=== PATIENT | male | born 1990 | race Caucasian/White ===

== ENCOUNTER 2016-11-24 14:36 | Emergency (ER) | payer OTHER, SELFPAY ==
[~2016-11-24] VITALS: Ht 170.2 cm; Wt 66.2 kg
[2016-11-24 14:37] VITALS: BP 127/74
[2016-11-24] MEDS ORDERED: PROP10TA56 PO (14:49)
[2016-11-24] MEDS ORDERED: DEPA1TAB3 PO (14:49)
[2016-11-24] MEDS ORDERED: Haldol (14:49)
[2016-11-24] MEDS ORDERED: ASPI325T PO (14:49)
[2016-11-24] MEDS ORDERED: Laxative (14:49)
[2016-11-24] MEDS ORDERED: SERO1TAB3 PO (14:49)
== END 2016-11-24 17:46 | disposition home or self-care (01) ==
LOC: M ED 16:56
DX: Z43.1 Encounter for attention to gastrostomy (principal); F99 Mental disorder, not otherwise specified; F17.210 Nicotine dependence, cigarettes, uncomplicated; Z87.828 Personal history of other (healed) physical injury and trauma; Z79.899 Other long term (current) drug therapy

== ENCOUNTER 2016-11-29 08:00 | Outpatient (RCR) | payer OTHER ==
[~2016-11-29 08:00] MED LIST: ASPI325T PO; DEPA1TAB3 PO; Haldol; Laxative; PROP10TA56 PO; SERO1TAB3 PO
== END 2016-12-15 ==
LOC: M ST 08:00
DX: Z51.89 Encounter for other specified aftercare (principal); R41.841 Cognitive communication deficit

== ENCOUNTER 2017-09-03 10:30 | Emergency (ER) | payer OTHER ==
[2017-09-03] MEDS: methylPREDNISolone INJ 125 MG/2 ML VIAL (J2930) IM (10:57)
== END 2017-09-03 11:16 | disposition home or self-care (01) ==
LOC: M ED 10:30
DX: L23.9 Allergic contact dermatitis, unspecified cause (principal); F17.200 Nicotine dependence, unspecified, uncomplicated; Z91.030 Bee allergy status
CPT/HCPCS: J2930

== ENCOUNTER → 2017-12-31 | Outpatient (CLI) | payer MEDICAID, SELFPAY | LOC: M OUTALCOH 12:33 | DX: Z13.9 Encounter for screening, unspecified (principal); F12.20 Cannabis dependence, uncomplicated ==

== ENCOUNTER 2018-01-08 16:29 | Outpatient (RCR) | payer MEDICAID, SELFPAY | END 2018-01-15 | LOC: M OUTALCOH 16:29 | DX: F12.20 Cannabis dependence, uncomplicated (principal) ==

== ENCOUNTER 2018-12-10 01:39 | Emergency (ER) | payer MEDICAID, OTHER ==
[~2018-12-10] VITALS: Ht 170.2 cm; Wt 65.0 kg
[~2018-12-10 01:39] MED LIST changes: +ASPI-1 PO; -ASPI325T PO; +HYDR1CRE93 TOP
[2018-12-10 02:13] LABS: BASO # 0.1 10^3/uL (0.0-0.2); EOS # 0.2 10^3/uL (0.0-0.50); EOS % 2.5 % (0.0-3.0); HEMATOCRIT 42.1 % (42.0-52.0); HEMOGLOBIN 15.3 g/dl (13.5-17.5); LYMPH # 3.8 10^3/uL (1.5-6.5); LYMPH % 40.1 % (24.0-44.0); MEAN CORPUSCULAR HEMOGLOBIN 30.4 pg (27.0-33.0); MEAN CORPUSCULAR HGB CONC 36.3 g/dl (32.0-36.5); MEAN CORPUSCULAR VOLUME 83.7 fl (80.0-96.0); MONO # 0.8 10^3/uL (0.0-0.8); MONO % 8.1 % (0.0-5.0); NEUTROPHILS # 4.5 10^3/uL (1.8-7.7); PLATELET COUNT, AUTOMATED 318 10^3/uL (150-450); RED BLOOD COUNT 5.03 10^6/uL (4.30-6.10); WHITE BLOOD COUNT 9.5 10^3/uL (4.0-10.0)
[2018-12-10 02:35] LABS: BLOOD UREA NITROGEN 10 MG/DL (7-18); CALCIUM LEVEL 8.9 MG/DL (8.5-10.1); CARBON DIOXIDE LEVEL 26 MEQ/L (21-32); CHLORIDE LEVEL 106 MEQ/L (98-107); CK-MB VALUE MASS 2.1 NG/ML (<3.6); CPK CREATINE PHOSPHOKINASE 342 U/L (39-308); CREATININE FOR GFR 0.82 MG/DL (0.70-1.30); GLOMERULAR FILTRATION RATE > 60.0 (>60); GLUCOSE, FASTING 82 MG/DL (70-100); MB/CK RELATIVE INDEX 0.61 (< OR =4); POTASSIUM SERUM 3.8 MEQ/L (3.5-5.1); SODIUM LEVEL 139 MEQ/L (136-145); TROPONIN I < 0.02 NG/ML (< 0.10)
[2018-12-10] MEDS ORDERED: NS 1,000 ML IV ONE (03:15)
[2018-12-10] MEDS ORDERED: KETOROLAC 30 MG/ML VIAL (J1885) IV ONE (03:15)
[2018-12-10] MEDS ORDERED: METAL LOCK LOOP XX ONE (03:48)
[2018-12-10 03:53] LABS: CK-MB VALUE MASS 2.3 NG/ML (<3.6); CPK CREATINE PHOSPHOKINASE 330 U/L (39-308); TROPONIN I < 0.02 NG/ML (< 0.10)
[2018-12-10 04:30] VITALS: BP 106/62
--- NOTE | 2018-12-10 08:35 | REP ---
Clinical: Acute chest pain . Comparison: 10/07/2015 . Technique: PA and lateral. Findings: The mediastinum and cardiac silhouette are normal. The lung iqbal are clear and without acute consolidation, effusion, or pneumothorax. The skeletal structures are intact and normal. Impression: 1. No acute cardiopulmonary process. Electronically Signed by Dayton Donis MD 12/10/2018 06:14 A
--- NOTE | 2018-12-10 15:38 | ECGEPIP ---
[facility] - ED Test Date: 2018-12-10 Pat Name: BOBO PERKINS Department: Room: - Gender: Male [employer] Analyst: danielle : 1990 Requested By: KIMBERLEE Guevara Order Number: [id number] Reading MD: Linh Ng Measurements Intervals [place] Rate: 52 P: 24 MT: 122 QRS: 62 QRSD: 97 T: 33 QT: 397 QTc: 372 Interpretive Statements SINUS BRADYCARDIA INCOMPLETE RIGHT BUNDLE BRANCH BLOCK similar to prior EKG 10/07/15 Electronically Signed on 12-10-2018 15:37:41 EDT by Linh Ng
== END 2018-12-10 04:41 | disposition home or self-care (01) ==
LOC: M ED 01:39
DX: R07.89 Other chest pain (principal); I45.19 Other right bundle-branch block; Z91.030 Bee allergy status; Z87.891 Personal history of nicotine dependence; F12.20 Cannabis dependence, uncomplicated
CPT/HCPCS: 71046; 80048; 82550; 82553; 85025; 85379; 93005; 96361; 96374; 99284; J1885

== ENCOUNTER → 2022-04-02 | Outpatient (REF) | payer OTHER ==
[~2022-04-02] MED LIST changes: -HYDR1CRE93 TOP; +HYDR28CR33 TOP
== END ==
LOC: M LAB REF 10:29
PROVIDERS: ATTEND Physician Assistant Medical
DX: L03.114 Cellulitis of left upper limb (principal)

== ENCOUNTER → 2022-04-06 | Outpatient (CLI) | payer OTHER | LOC: M SOG 13:32 | PROVIDERS: ATTEND Student in an Organized Health Care Education/Training Program | DX: M79.642 Pain in left hand (principal) ==

== ENCOUNTER 2022-09-13 22:59 | Inpatient (IN) | payer BC, MEDICAID, OTHER ==
[~2022-09-13] VITALS: Ht 167.6 cm; Wt 63.1 kg
[2022-09-13 23:47] LABS: HEMATOCRIT 43.3 % (42.0-52.0); MEAN CORPUSCULAR HEMOGLOBIN 30.2 pg (27.0-33.0); MEAN CORPUSCULAR HGB CONC 34.6 g/dl (32.0-36.5); MEAN CORPUSCULAR VOLUME 87.3 fl (80.0-96.0); PLATELET COUNT, AUTOMATED 355 10^3/uL (150-450); RED BLOOD COUNT 4.96 10^6/uL (4.30-6.10); WHITE BLOOD COUNT 14.3 10^3/uL (4.0-10.0)
[2022-09-13 23:58] LABS: BARBITURATES URINE NEGATIVE (NEGATIVE)
[2022-09-13 23:59] LABS: AMPHETAMINES LEVEL URINE NEGATIVE (NEGATIVE); BENZODIAZEPINES URINE NEGATIVE (NEGATIVE); COCAINE METABOLITE URINE NEGATIVE (NEGATIVE); METHADONE URINE NEGATIVE (NEGATIVE); OPIATES URINE NEGATIVE (NEGATIVE); PHENCYCLIDINE URINE NEGATIVE (NEGATIVE)
[2022-09-14 00:02] LABS: ACETAMINOPHEN LEVEL < 2.0 UG/ML (10.0-20.0); ETHYL ALCOHOL (ETHANOL) < 0.003 % (0.000-0.010)
[2022-09-14 00:03] LABS: SALICYLATE LEVEL < 3.0 MG/DL (<30)
[2022-09-14 00:05] LABS: CANNABINOIDS URINE POSITIVE (NEGATIVE)
[2022-09-14 00:07] LABS: ALBUMIN 3.8 G/DL (3.2-5.2); ALKALINE PHOSPHATASE 58 U/L (46-116); ALT/SGPT 24 U/L (7.0-40); AST/SGOT 18 U/L (<34); BILIRUBIN,DIRECT 0.1 MG/DL (<0.4); BILIRUBIN,TOTAL 0.4 MG/DL (0.3-1.2); BLOOD UREA NITROGEN 12 MG/DL (9-23); CALCIUM LEVEL 9.3 MG/DL (8.5-10.1); CARBON DIOXIDE LEVEL 28 MMOL/L (20-31); CHLORIDE LEVEL 105 MMOL/L (98-107); CREATININE FOR GFR 0.65 MG/DL (0.70-1.30); GLOMERULAR FILTRATION RATE > 60.0 (>60); GLUCOSE, FASTING 98 MG/DL (60-100); POTASSIUM SERUM 3.8 MMOL/L (3.5-5.1); SODIUM LEVEL 139 MMOL/L (136-145); TOTAL PROTEIN 6.7 G/DL (5.7-8.2)
[2022-09-14] MEDS ORDERED: HOME MED LIST COMPLETE! XX SCH (02:05)
[2022-09-14] MEDS ORDERED: MIDAZOLAM INJ 2MG/2ML VIAL IM ONE (07:45)
[2022-09-14] MEDS ORDERED: HALOPERIDOL 5MG/ML 1ML VIAL IM ONE (07:45)
[2022-09-14] MEDS ORDERED: diphenhydrAMINE 50MG/ML VIAL IM ONE (07:45)
[2022-09-14] MEDS ORDERED: LORazepam 1 MG TAB PO ONE (07:50)
[2022-09-14] MEDS ORDERED: OLANZapine ORAL DISINTEGRATING TAB 5MG PO ONE (18:05)
[2022-09-15] MEDS ORDERED: OLANZapine ORAL DISINTEGRATING TAB 5MG PO PRN (10:25)
[2022-09-15] MEDS: NICOTINE 21MG/24HR 1 EA TRANSDERMAL TD SCH (10:53)
[2022-09-15 11:08] VITALS: BP 110/71
[2022-09-15 15:04] VITALS: BP 110/71
[2022-09-15 16:40] VITALS: BP 103/68
[2022-09-15] MEDS: traZODone 50 MG TAB PO PRN (21:24)
[2022-09-16 06:28] VITALS: BP 111/66
[2022-09-16] MEDS: NICOTINE 21MG/24HR 1 EA TRANSDERMAL TD SCH ×2 (09:00→10:17)
[2022-09-16] MEDS: FLUoxetine 20MG CAP PO SCH (12:54)
[2022-09-16 16:33] VITALS: BP 116/70
[2022-09-16] MEDS: traZODone 50 MG TAB PO PRN (23:08)
[2022-09-16] MEDS: diphenhydrAMINE 25MG CAP PO PRN (23:08)
[2022-09-17 06:38] VITALS: BP 119/87
[2022-09-17 06:50] LABS: HEMOGLOBIN A1c 4.7 % (4.0-6.0)
[2022-09-17 07:10] LABS: CHOLESTEROL RISK RATIO 2.77 (<5); HDL CHOLESTEROL 50.8 MG/DL (>40); LDL CHOLESTEROL 74.6 MG/DL (<100); NON-HDL-C 90.2 MG/DL
[2022-09-17] MEDS: NICOTINE 21MG/24HR 1 EA TRANSDERMAL TD SCH (09:10)
[2022-09-17] MEDS: FLUoxetine 20MG CAP PO SCH (09:10)
[2022-09-17 16:49] VITALS: BP 131/81
[2022-09-17] MEDS: diphenhydrAMINE 25MG CAP PO PRN (21:21)
[2022-09-17] MEDS: traZODone 50 MG TAB PO PRN (21:21)
[2022-09-18 06:51] VITALS: BP 110/71
[2022-09-18] MEDS: FLUoxetine 20MG CAP PO SCH (09:49)
[2022-09-18] MEDS: NICOTINE 21MG/24HR 1 EA TRANSDERMAL TD SCH (09:51)
[2022-09-18 19:17] VITALS: BP 138/78
[2022-09-18] MEDS: traZODone 50 MG TAB PO PRN (20:37)
[2022-09-18] MEDS: diphenhydrAMINE 25MG CAP PO PRN (20:37)
[2022-09-18 22:15] VITALS: BP 116/67
[2022-09-19 06:11] VITALS: BP 120/69
[2022-09-19] MEDS: FLUoxetine 20MG CAP PO SCH (08:16)
[2022-09-19] MEDS: NICOTINE 21MG/24HR 1 EA TRANSDERMAL TD SCH (08:17)
[2022-09-19] MEDS ORDERED: FLUO20CA22 PO (09:10)
[2022-09-19] MEDS ORDERED: BENA25CA4 PO (09:10)
[2022-09-19] MEDS ORDERED: NICO21PAT TD (09:10)
[2022-09-19] MEDS ORDERED: ABIL1TAB11 PO (09:10)
[2022-09-19] MEDS ORDERED: TRAZ-252 PO (09:10)
== END 2022-09-19 10:20 | disposition home or self-care (01) | DRG 758 ==
LOC: M ED 22:59 → M ED INP 09-15 10:22 → M PSY 09-15 15:10
PROVIDERS: ADMIT Student in an Organized Health Care Education/Training Program; ATTEND Student in an Organized Health Care Education/Training Program
DX: F63.9 Impulse disorder, unspecified (principal); Z78.1 Physical restraint status; R45.851 Suicidal ideations; Z87.820 Personal history of traumatic brain injury; F06.31 Mood disorder due to known physiological condition with depressive features; Z91.030 Bee allergy status; F17.210 Nicotine dependence, cigarettes, uncomplicated; Z63.5 Disruption of family by separation and divorce; F43.20 Adjustment disorder, unspecified

== ENCOUNTER 2023-03-25 13:22 | Inpatient (IN) | payer BC ==
[~2023-03-25] VITALS: Ht 165.1 cm; Wt 70.9 kg
[~2023-03-25 13:22] MED LIST changes: +ABIL1TAB11 PO; +BENA25CA4 PO; +FLUO20CA22 PO; +NICO21PAT TD; +TRAZ-252 PO
[2023-03-25 13:42] LABS: HEMATOCRIT 42.1 % (42.0-52.0); HEMOGLOBIN 15.2 g/dl (13.5-17.5); MEAN CORPUSCULAR HEMOGLOBIN 31.1 pg (27.0-33.0); MEAN CORPUSCULAR HGB CONC 36.1 g/dl (32.0-36.5); MEAN CORPUSCULAR VOLUME 86.1 fl (80.0-96.0); PLATELET COUNT, AUTOMATED 342 10^3/uL (150-450); RED BLOOD COUNT 4.89 10^6/uL (4.30-6.10); WHITE BLOOD COUNT 9.9 10^3/uL (4.0-10.0)
[2023-03-25] MEDS ORDERED: LORazepam 2 MG/ML 1ML VIAL IM STA (13:58)
[2023-03-25] MEDS ORDERED: OLANZapine INTRAMUSCULAR 10MG VIAL IM ONE (14:00)
[2023-03-25] MEDS ORDERED: MED REC IN PROGRESS XX SCH (14:00)
[2023-03-25] MEDS ORDERED: MED REC CURRENTLY UNOBTAINABLE XX SCH (14:05)
[2023-03-25 14:11] LABS: ETHYL ALCOHOL (ETHANOL) < 0.003 % (0.000-0.010)
[2023-03-25 14:12] LABS: ACETAMINOPHEN LEVEL < 2.0 UG/ML (10.0-20.0); SALICYLATE LEVEL < 3.0 MG/DL (<30)
[2023-03-25 14:13] LABS: ALBUMIN 4.2 G/DL (3.2-5.2); ALKALINE PHOSPHATASE 56 U/L (46-116); ALT/SGPT 18 U/L (7.0-40); AST/SGOT 23 U/L (<34); BILIRUBIN,DIRECT 0.3 MG/DL (<0.4); BILIRUBIN,TOTAL 0.7 MG/DL (0.3-1.2); BLOOD UREA NITROGEN 15 MG/DL (9-23); CALCIUM LEVEL 9.5 MG/DL (8.5-10.1); CARBON DIOXIDE LEVEL 25 MMOL/L (20-31); CHLORIDE LEVEL 110 MMOL/L (98-107); CREATININE FOR GFR 0.78 MG/DL (0.70-1.30); GLOMERULAR FILTRATION RATE > 60.0 (>60); GLUCOSE, FASTING 96 MG/DL (60-100); POTASSIUM SERUM 3.9 MMOL/L (3.5-5.1); SODIUM LEVEL 142 MMOL/L (136-145); TOTAL PROTEIN 6.6 G/DL (5.7-8.2)
[2023-03-25 14:15] LABS: THYROID STIMULATING HORMONE 0.704 uIU/ML (0.55-4.78)
[2023-03-25] MEDS ORDERED: NICOTINE 21MG/24HR 1 EA TRANSDERMAL TD ONE (14:15)
[2023-03-25 14:22] LABS: VALPROIC ACID (DEPAKOTE) < 3.0 UG/ML (50.0-100.0)
[2023-03-25 14:46] LABS: AMPHETAMINES LEVEL URINE NEGATIVE (NEGATIVE); BARBITURATES URINE NEGATIVE (NEGATIVE); COCAINE METABOLITE URINE NEGATIVE (NEGATIVE); METHADONE URINE NEGATIVE (NEGATIVE); OPIATES URINE NEGATIVE (NEGATIVE); PHENCYCLIDINE URINE NEGATIVE (NEGATIVE)
[2023-03-25 14:47] LABS: BENZODIAZEPINES URINE NEGATIVE (NEGATIVE)
[2023-03-25 14:53] LABS: CANNABINOIDS URINE POSITIVE (NEGATIVE)
[2023-03-25] MEDS ORDERED: BUPR15TASR PO (15:19)
[2023-03-25] MEDS ORDERED: ARIP1TAB6 PO (15:19)
[2023-03-25] MEDS ORDERED: NICO1DIS12 TOP (15:19)
[2023-03-25] MEDS ORDERED: FLUO40CA PO (15:19)
[2023-03-25] MEDS ORDERED: TRAZ-252 PO (15:19)
[2023-03-25] MEDS ORDERED: HOME MED LIST COMPLETE! XX SCH (15:30)
[2023-03-26] MEDS ORDERED: LORazepam 2 MG TAB PO ONE (15:15)
[2023-03-27] MEDS ORDERED: traZODone 50 MG TAB PO PRN (07:25)
[2023-03-27] MEDS ORDERED: LORazepam 1 MG TAB PO STA (08:11)
[2023-03-27] MEDS ORDERED: buPROPion **SR TABLET** (ZYBAN) 150MG PO SCH (09:00)
[2023-03-27] MEDS ORDERED: FLUoxetine 20MG CAP PO SCH (09:00)
[2023-03-27] MEDS ORDERED: NICOTINE 21MG/24HR 1 EA TRANSDERMAL TOP SCH (09:00)
[2023-03-27] MEDS ORDERED: MIDAZOLAM INJ 2MG/2ML VIAL IM ONE (11:30)
[2023-03-27] MEDS ORDERED: diphenhydrAMINE 50MG/ML VIAL IM ONE (11:30)
[2023-03-27] MEDS ORDERED: HALOPERIDOL 5MG/ML 1ML VIAL IM ONE (11:30)
[2023-03-27] MEDS ORDERED: MOM 30ML SUSPENSION UDC PO PRN (20:35)
[2023-03-27] MEDS ORDERED: MAALOX 30 ML SUSP *UDC PO PRN (20:35)
[2023-03-27] MEDS ORDERED: ACETAMINOPHEN TAB 650MG DOSE (2X325MG) PO PRN (20:35)
[2023-03-27] MEDS ORDERED: buPROPion (WELLBUTRIN SR) 100 MG SR TAB PO SCH (21:00)
[2023-03-27] MEDS: traZODone 50 MG TAB PO PRN (21:02)
[2023-03-27 21:20] VITALS: BP 126/78; TEMP 97.3; O2SAT 100
[2023-03-28 06:38] VITALS: BP 105/64; TEMP 98.1; O2SAT 100
[2023-03-28] MEDS: NICOTINE 21MG/24HR 1 EA TRANSDERMAL TD SCH ×2 (09:00→09:40)
[2023-03-28] MEDS: FLUoxetine 20MG CAP PO SCH ×2 (09:00→09:40)
[2023-03-28] MEDS: buPROPion **SR TABLET** (ZYBAN) 150MG PO SCH ×3 (09:00→20:15)
[2023-03-28] MEDS ORDERED: buPROPion **SR TABLET** (ZYBAN) 150MG PO SCH (09:16)
[2023-03-28 16:10] VITALS: BP 119/66; TEMP 98.9; O2SAT 100
[2023-03-28] MEDS: traZODone 50 MG TAB PO PRN (20:14)
[2023-03-29 06:42] VITALS: BP 125/68; TEMP 98.2; O2SAT 99
[2023-03-29] MEDS: buPROPion **SR TABLET** (ZYBAN) 150MG PO SCH ×2 (08:09→20:08)
[2023-03-29] MEDS: FLUoxetine 20MG CAP PO SCH (08:09)
[2023-03-29] MEDS: NICOTINE 21MG/24HR 1 EA TRANSDERMAL TD SCH (08:10)
[2023-03-29 18:07] VITALS: BP 122/73; TEMP 98.7; O2SAT 98
[2023-03-29] MEDS: traZODone 50 MG TAB PO PRN (20:07)
[2023-03-30 06:31] VITALS: BP 120/73; TEMP 97.7; O2SAT 100
[2023-03-30] MEDS: NICOTINE 21MG/24HR 1 EA TRANSDERMAL TD SCH (07:55)
[2023-03-30] MEDS: buPROPion **SR TABLET** (ZYBAN) 150MG PO SCH (07:57)
[2023-03-30] MEDS: FLUoxetine 20MG CAP PO SCH (07:57)
[2023-03-30] MEDS ORDERED: FLUO40CA PO (08:44)
[2023-03-30] MEDS ORDERED: BUPR15TASR PO (08:44)
[2023-03-30] MEDS ORDERED: ABIL1TAB11 PO (08:44)
[2023-03-30] MEDS ORDERED: NICO1DIS12 TOP (08:44)
[2023-03-30] MEDS ORDERED: TRAZ-252 PO (08:44)
== END 2023-03-30 10:22 | disposition home or self-care (01) | DRG 755 ==
LOC: M ED 03-26 12:41 → M PSY 03-27 18:54
PROVIDERS: ADMIT Student in an Organized Health Care Education/Training Program; ATTEND Student in an Organized Health Care Education/Training Program
DX: F43.25 Adjustment disorder with mixed disturbance of emotions and conduct (principal); R45.850 Homicidal ideations; F41.9 Anxiety disorder, unspecified; Z91.49 Other personal history of psychological trauma, not elsewhere classified; R45.851 Suicidal ideations; F17.290 Nicotine dependence, other tobacco product, uncomplicated; Z79.899 Other long term (current) drug therapy; Z91.013 Allergy to seafood; Z20.822 Contact with and (suspected) exposure to COVID-19; Z56.0 Unemployment, unspecified; Z63.0 Problems in relationship with spouse or partner; Z81.8 Family history of other mental and behavioral disorders

== ENCOUNTER 2023-09-20 21:04 | Emergency (ER) | payer BC, OTHER ==
[~2023-09-20] VITALS: Ht 170.2 cm; Wt 77.3 kg
[~2023-09-20 21:04] MED LIST changes: +ARIP1TAB6 PO; +BUPR15TASR PO; +FLUO40CA PO; +NICO1DIS12 TOP
[2023-09-20] MEDS ORDERED: LIDOCAINE 1% MDV 50ML VIAL SC ONE (21:20)
[2023-09-20] MEDS ORDERED: LIDOCAINE W/EPINEPHRINE 1% 20ML VIAL As Ordered ONE (21:25)
[2023-09-20] MEDS ORDERED: LIDOCAINE 2% MDV 20ML VIAL As Ordered ONE (21:27)
[2023-09-20] MEDS ORDERED: CEFDINIR 300 MG CAP (OMNICEF) PO ONE (21:50)
[2023-09-20] MEDS ORDERED: CEFD1CAP9 PO ×2 (21:55→21:56)
[2023-09-20] MEDS ORDERED: PERI0.126 PO ×2 (21:55→21:56)
[2023-09-20 22:22] VITALS: BP 149/79; TEMP 98.3; O2SAT 99
== END 2023-09-20 22:24 | disposition home or self-care (01) ==
LOC: M ED 21:04
DX: S01.511A Laceration without foreign body of lip, initial encounter (principal); Y92.9 Unspecified place or not applicable; Y93.9 Activity, unspecified; Y99.9 Unspecified external cause status; Z88.0 Allergy status to penicillin; Z91.030 Bee allergy status; Z79.899 Other long term (current) drug therapy; Z79.2 Long term (current) use of antibiotics

== ENCOUNTER 2024-03-23 15:18 | Emergency (ER) | payer OTHER, SELFPAY ==
[~2024-03-23 15:18] MED LIST changes: +CEFD1CAP9 PO; +FLUO-365 PO; -FLUO20CA22 PO; +PERI0.126 PO
[2024-03-23 16:05] LABS: HEMATOCRIT 43.2 % (42.0-52.0); HEMOGLOBIN 15.6 g/dl (13.5-17.5); MEAN CORPUSCULAR HEMOGLOBIN 30.6 pg (27.0-33.0); MEAN CORPUSCULAR HGB CONC 36.1 g/dl (32.0-36.5); MEAN CORPUSCULAR VOLUME 84.9 fl (80.0-96.0); PLATELET COUNT, AUTOMATED 403 10^3/uL (150-450); RED BLOOD COUNT 5.09 10^6/uL (4.30-6.10); WHITE BLOOD COUNT 7.6 10^3/uL (4.0-10.0)
[2024-03-23 16:30] LABS: AMPHETAMINES LEVEL URINE NEGATIVE (NEGATIVE); BARBITURATES URINE NEGATIVE (NEGATIVE)
[2024-03-23 16:31] LABS: BENZODIAZEPINES URINE NEGATIVE (NEGATIVE); CANNABINOIDS URINE POSITIVE (NEGATIVE); COCAINE METABOLITE URINE NEGATIVE (NEGATIVE); METHADONE URINE NEGATIVE (NEGATIVE); OPIATES URINE NEGATIVE (NEGATIVE); PHENCYCLIDINE URINE NEGATIVE (NEGATIVE)
[2024-03-23 16:33] LABS: ETHYL ALCOHOL (ETHANOL) < 0.003 % (0.000-0.010)
[2024-03-23 16:35] LABS: ALBUMIN 3.9 G/DL (3.2-5.2); ALKALINE PHOSPHATASE 76 U/L (46-116); ALT/SGPT 23 U/L (7.0-40); AST/SGOT 18 U/L (<34); BILIRUBIN,DIRECT 0.3 MG/DL (<0.4); BILIRUBIN,TOTAL 0.9 MG/DL (0.3-1.2); BLOOD UREA NITROGEN 11 MG/DL (9-23); CALCIUM LEVEL 10.1 MG/DL (8.5-10.1); CARBON DIOXIDE LEVEL 25 MMOL/L (20-31); CHLORIDE LEVEL 111 MMOL/L (98-107); CREATININE FOR GFR 0.72 MG/DL (0.70-1.30); GLOMERULAR FILTRATION RATE > 60.0 (>60); GLUCOSE, FASTING 93 MG/DL (60-100); POTASSIUM SERUM 4.2 MMOL/L (3.5-5.1); SALICYLATE LEVEL < 3.0 MG/DL (<30); SODIUM LEVEL 140 MMOL/L (136-145); TOTAL PROTEIN 6.9 G/DL (5.7-8.2)
[2024-03-23] MEDS: LORazepam 2 MG TAB PO ONE (16:35)
[2024-03-23 16:37] LABS: THYROID STIMULATING HORMONE 1.092 uIU/ML (0.55-4.78)
[2024-03-23] MEDS: BOOSTRIX VACCINE (TETANUS/DIPHTH/ACEL. PERTUSSIS) 0.5ML SYR IM.IMMUN ONE (17:22)
[2024-03-23 18:41] VITALS: BP 116/81; TEMP 97.9; O2SAT 100
== END 2024-03-23 19:02 | disposition home or self-care (01) ==
LOC: M ED 15:18
DX: Z04.6 Encounter for general psychiatric examination, requested by authority (principal); F43.20 Adjustment disorder, unspecified; Z87.820 Personal history of traumatic brain injury; Z88.0 Allergy status to penicillin; Z91.030 Bee allergy status; Z79.2 Long term (current) use of antibiotics; Z23 Encounter for immunization; Z79.899 Other long term (current) drug therapy

== ENCOUNTER → 2025-01-29 | Outpatient (CLI) | payer MEDICAID ==
[~2025-01-29] MED LIST changes: -HYDR28CR33 TOP; +HYDR28CR52 TOP
== END ==
LOC: M OUTALCOH 12:58
PROVIDERS: ATTEND Psychiatry & Neurology Psychiatry
DX: F12.20 Cannabis dependence, uncomplicated (principal); F17.200 Nicotine dependence, unspecified, uncomplicated